=== PATIENT | male | born 1975 | race African-American/Black ===

== ENCOUNTER 2017-12-09 18:02 | Emergency (ER) | payer OTHER ==
[~2017-12-09] VITALS: Ht 170.2 cm; Wt 75.0 kg
[2017-12-09 20:26] VITALS: BP 138/85
[2017-12-09] MEDS ORDERED: DOXYCYCLINE HYCLATE 100 MG CAPSULE PO ONE (20:45)
[2017-12-09] MEDS ORDERED: AZITHROMYCIN 250 MG TABLET PO ONE (20:45)
[2017-12-09] MEDS ORDERED: CefTRIAXone SODIUM 1 GM/VIAL IM ONE (20:45)
== END 2017-12-09 21:20 | disposition home or self-care (01) ==
LOC: EMS 18:02
DX: N45.1 Epididymitis (principal); N34.2 Other urethritis; F20.9 Schizophrenia, unspecified; F31.9 Bipolar disorder, unspecified; F17.210 Nicotine dependence, cigarettes, uncomplicated
CPT/HCPCS: 76870; 96372; 99284; J0696

== ENCOUNTER 2019-11-09 22:16 | Emergency (ER) | payer OTHER ==
[~2019-11-09] VITALS: Ht 170.2 cm; Wt 65.9 kg
[2019-11-09] MEDS ORDERED: KETOROLAC TROMETHAMINE 60 MG/2 ML VIAL IM ONE (23:00)
[2019-11-09 23:19] LABS: BASOPHILS % (AUTO) 0.9 % (0.0-2.0); HEMATOCRIT 42.7 % (41-53); HEMOGLOBIN 13.7 g/dL (13.5-17.5); LYMPHOCYTES # (AUTO) 1.6 K/uL (1.0-4.8); MEAN CORPUSCULAR HEMOGLOBIN 27.7 pg (26.0-34.0); MEAN CORPUSCULAR HGB CONC 32.1 G/dL (31.0-37.0); MEAN CORPUSCULAR VOLUME 86 fL (80-100); MONOCYTES # (AUTO) 0.6 K/uL (0.1-1.0); NEUTROPHILS # (AUTO) 2.4 K/uL (1.8-7.7); NEUTROPHILS % (AUTO) 50.1 % (40.0-70.0); PLATELET COUNT (AUTO) 304 K/uL (150-450); RED BLOOD CELL COUNT(AUTO) 4.95 MIL/uL (4.50-5.90)
[2019-11-09 23:27] LABS: ANION GAP 10 mmol/L (8-16); CALCIUM, TOTAL 8.9 mg/dL (8.8-10.5); CARBON DIOXIDE 26 mmol/L (22-29); CHLORIDE 98 mmol/L (98-107); CREATININE 1.08 mg/dL (0.60-1.30); GLOMERULAR FILTR. RATE CALC > 60 mL/min (>60); GLUCOSE,RANDOM 89 mg/dL (70-110); POTASSIUM 3.6 mmol/L (3.5-5.1); SODIUM SERUM 134 mmol/L (136-145); UREA NITROGEN, BLOOD 11 mg/dL (7-18)
[2019-11-09 23:33] LABS: ALANINE AMINOTRANSFERASE 24 U/L (12-78); ALBUMIN 4.1 g/dL (3.4-5.0); ALKALINE PHOSPHATASE 109 U/L (46-116); ASPARTATE AMINOTRANSFERASE 21 U/L (15-37); BILIRUBIN,TOTAL 0.4 mg/dL (0.1-1.0); TOTAL PROTEIN, SERUM 7.5 g/dL (6.4-8.2)
[2019-11-10] VITALS: BP 141/89
== END 2019-11-10 00:30 | disposition home or self-care (01) ==
LOC: EMS 22:18
DX: N45.1 Epididymitis (principal); F15.10 Other stimulant abuse, uncomplicated; F17.210 Nicotine dependence, cigarettes, uncomplicated; F31.9 Bipolar disorder, unspecified; F20.9 Schizophrenia, unspecified
CPT/HCPCS: 36415; 80053; 85025; 99283; G0480

== ENCOUNTER 2019-11-10 13:56 | Emergency (ER) | payer OTHER ==
[~2019-11-10] VITALS: Ht 165.1 cm; Wt 77.3 kg
[2019-11-10 13:59] VITALS: BP 128/92
== END 2019-11-10 14:11 | disposition left against medical advice (07) ==
LOC: EMS 13:57
DX: M79.10 Myalgia, unspecified site (principal); Z53.21 Procedure and treatment not carried out due to patient leaving prior to being seen by health care provider

== ENCOUNTER 2021-05-05 18:47 | Inpatient (IN) | payer MEDICAID ==
[~2021-05-05] VITALS: Ht 170.2 cm; Wt 71.7 kg
[2021-05-05] MEDS ORDERED: HALOPERIDOL 5 MG TABLET PO PRN (23:45)
[2021-05-06] MEDS ORDERED: INFLUENZA VIRUS VACCINE QVS 2021-22 (6MO+)/PF 60 MCG/0.5 ML SYRINGE IM. ONE (00:15)
[2021-05-06] MEDS: LORazepam 2 MG TABLET PO PRN (00:27)
[2021-05-06] MEDS: ZOLPIDEM TARTRATE 10 MG TABLET PO PRN (00:27)
[2021-05-06 00:29] VITALS: BP 122/76
[2021-05-06 08:23] VITALS: BP 131/68
[2021-05-06] MEDS ORDERED: ONDANSETRON HCL 4 MG TABLET PO PRN (09:00)
[2021-05-06] MEDS ORDERED: PETROLATUM,WHITE 28 GM JELLY TP PRN (09:00)
[2021-05-06] MEDS ORDERED: BACITRACIN 28 GM OINTMENT TP PRN (09:00)
[2021-05-06] MEDS ORDERED: ALBUTEROL SULFATE HFA 90 MCG/PUFF 8 GM INHALER IH PRN (09:00)
[2021-05-06] MEDS ORDERED: BENZOCAINE/MENTHOL LOZENGE PO PRN (09:00)
[2021-05-06] MEDS ORDERED: DOCUSATE SODIUM 100 MG CAPSULE PO PRN (09:00)
[2021-05-06] MEDS ORDERED: MAGNESIUM HYDROXIDE SUSPENSION 30 ML UDCUP PO PRN (09:00)
[2021-05-06] MEDS ORDERED: CloNIDine HCL 0.1 MG TABLET PO PRN (09:00)
[2021-05-06] MEDS ORDERED: OMEPRAZOLE 20 MG CAPSULE PO PRN (09:00)
[2021-05-06] MEDS ORDERED: ACETAMINOPHEN 325 MG TABLET PO PRN (09:00)
[2021-05-06] MEDS ORDERED: LOPERAMIDE HCL 2 MG CAPSULE PO PRN (09:00)
[2021-05-06] MEDS ORDERED: IBUPROFEN 600 MG TABLET PO PRN (09:00)
[2021-05-06] MEDS ORDERED: MAG HYDROX/AL HYDROX/SIMETH ES 30 ML SUSPENSION UDCUP PO PRN (09:00)
[2021-05-06 16:16] VITALS: BP 113/65
[2021-05-06] MEDS ORDERED: LAMO25TA25 PO (18:57)
[2021-05-06] MEDS ORDERED: QUET100T PO (18:57)
[2021-05-06] MEDS ORDERED: QUET300T2 PO (18:57)
[2021-05-07 05:37] VITALS: BP 127/66
[2021-05-07 07:59] LABS: BASOPHILS % (AUTO) 0.5 % (0.0-2.0); EOSINOPHILS % (AUTO) 5.3 % (1.0-6.0); HEMATOCRIT 38.6 % (41-53); HEMOGLOBIN 12.7 g/dL (13.5-17.5); LYMPHOCYTES % (AUTO) 46.6 % (22.0-44.0); MEAN CORPUSCULAR VOLUME 88 fL (80-100); MONOCYTES # (AUTO) 0.5 K/uL (0.1-1.0); NEUTROPHILS # (AUTO) 1.5 K/uL (1.8-7.7); NEUTROPHILS % (AUTO) 35.6 % (40.0-70.0); PLATELET COUNT (AUTO) 331 K/uL (150-450); RED BLOOD CELL COUNT(AUTO) 4.39 MIL/uL (4.50-5.90); RED CELL DISTRIBUTION WIDTH 13.6 % (11.5-14.5)
[2021-05-07 08:14] LABS: HEMOGLOBIN A1C 5.6 % (3.8-5.6)
[2021-05-07 08:36] LABS: ALANINE AMINOTRANSFERASE 22 U/L (12-78); ALBUMIN 3.4 g/dL (3.4-5.0); ALKALINE PHOSPHATASE 90 U/L (46-116); ANION GAP 11 mmol/L (8-16); ASPARTATE AMINOTRANSFERASE 19 U/L (15-37); BILIRUBIN,TOTAL 0.3 mg/dL (0.1-1.0); CALCIUM, TOTAL 8.2 mg/dL (8.8-10.5); CARBON DIOXIDE 27 mmol/L (22-29); CHLORIDE 105 mmol/L (98-107); CHOL/HDL RATIO 3.3 (4.2-7.3); CHOLESTEROL 166 mg/dL (131-200); FREE T4 (FREE THYROXINE) 1.27 ng/dL (0.76-1.46); GLOMERULAR FILTR. RATE CALC > 60 mL/min (>60); GLUCOSE,RANDOM 102 mg/dL (70-110); HDL CHOLESTEROL 50 mg/dL (40-60); LDL CHOL (CALC.) 108 mg/dL (0-130); POTASSIUM 3.7 mmol/L (3.5-5.1); SODIUM SERUM 143 mmol/L (136-145); TOTAL PROTEIN, SERUM 6.3 g/dL (6.4-8.2); TRIGLYCERIDES 40 mg/dL (15-150); UREA NITROGEN, BLOOD 10 mg/dL (7-18)
[2021-05-07 08:52] VITALS: BP 109/66
[2021-05-07 16:06] VITALS: BP 111/75
[2021-05-07] MEDS: LamoTRIgine 100 MG TABLET PO SCH (16:26)
[2021-05-07] MEDS: LORazepam 2 MG TABLET PO PRN (16:26)
[2021-05-07] MEDS: QUEtiapine FUMARATE 100 MG TABLET PO SCH (16:26)
[2021-05-07] MEDS ORDERED: LamoTRIgine 100 MG TABLET PO SCH (17:00)
[2021-05-07] MEDS: QUEtiapine FUMARATE 300 MG TABLET PO SCH (20:26)
[2021-05-08 06:06] VITALS: BP 101/61
[2021-05-08 08:25] VITALS: BP 108/68
[2021-05-08] MEDS: LamoTRIgine 100 MG TABLET PO SCH ×2 (08:45→17:01)
[2021-05-08] MEDS: QUEtiapine FUMARATE 100 MG TABLET PO SCH (08:45)
[2021-05-08] MEDS: LORazepam 2 MG TABLET PO PRN ×2 (08:55→20:03)
[2021-05-08] MEDS: QUEtiapine FUMARATE 300 MG TABLET PO SCH (20:03)
[2021-05-09 06:50] VITALS: BP 123/78
[2021-05-09 08:08] VITALS: BP 122/90
[2021-05-09] MEDS: LamoTRIgine 100 MG TABLET PO SCH ×2 (08:35→17:05)
[2021-05-09] MEDS: QUEtiapine FUMARATE 100 MG TABLET PO SCH (08:35)
[2021-05-09] MEDS: LORazepam 2 MG TABLET PO PRN ×2 (11:52→20:02)
[2021-05-09 16:17] VITALS: BP 133/78
[2021-05-09] MEDS: QUEtiapine FUMARATE 300 MG TABLET PO SCH (20:02)
[2021-05-10 04:47] VITALS: BP 132/90
[2021-05-10 08:30] VITALS: BP 114/72
[2021-05-10] MEDS: QUEtiapine FUMARATE 100 MG TABLET PO SCH (08:46)
[2021-05-10] MEDS: LamoTRIgine 100 MG TABLET PO SCH ×2 (08:46→16:46)
[2021-05-10 16:00] VITALS: BP 108/70
[2021-05-10] MEDS: LORazepam 2 MG TABLET PO PRN (16:46)
[2021-05-10] MEDS: QUEtiapine FUMARATE 300 MG TABLET PO SCH (20:15)
[2021-05-10] MEDS: ZOLPIDEM TARTRATE 10 MG TABLET PO PRN (20:15)
[2021-05-11 06:24] VITALS: BP 118/72
[2021-05-11 07:36] LABS: COVID AG,FIA SOURCE NASAL SWAB
[2021-05-11 08:15] VITALS: BP 135/72
[2021-05-11] MEDS: LORazepam 2 MG TABLET PO PRN ×2 (08:32→16:31)
[2021-05-11] MEDS: LamoTRIgine 100 MG TABLET PO SCH ×2 (08:32→16:30)
[2021-05-11] MEDS: QUEtiapine FUMARATE 100 MG TABLET PO SCH (08:32)
[2021-05-11 16:10] VITALS: BP 133/89
[2021-05-11] MEDS: QUEtiapine FUMARATE 300 MG TABLET PO SCH (20:19)
[2021-05-11] MEDS: ZOLPIDEM TARTRATE 10 MG TABLET PO PRN (20:20)
[2021-05-12 05:11] VITALS: BP 128/78
[2021-05-12 08:36] VITALS: BP_SYST 109; BP_DIAS 73; BP_DIAS 82
[2021-05-12] MEDS: LamoTRIgine 100 MG TABLET PO SCH (08:41)
[2021-05-12] MEDS: QUEtiapine FUMARATE 100 MG TABLET PO SCH (08:41)
[2021-05-12 16:24] VITALS: BP 120/76
[2021-05-13 06:06] LABS: HIV 1-2 SCREEN 4TH GEN W/RFLX Non Reactive (Non Reactive)
== END 2021-05-12 20:41 | disposition home or self-care (01) | DRG 750 ==
LOC: B3A 23:47
PROVIDERS: ADMIT Psychiatry & Neurology Psychiatry; ATTEND Psychiatry & Neurology Psychiatry
DX: F25.9 Schizoaffective disorder, unspecified (principal); F17.210 Nicotine dependence, cigarettes, uncomplicated; F41.9 Anxiety disorder, unspecified; G47.00 Insomnia, unspecified; Z79.899 Other long term (current) drug therapy; K59.00 Constipation, unspecified; Z20.822 Contact with and (suspected) exposure to COVID-19
CPT/HCPCS: 80053; 80061; 83036; 84439; 84443; 85025; 87389

== ENCOUNTER 2021-09-19 06:23 | Emergency (ER) | payer MEDICAID ==
[~2021-09-19] VITALS: Ht 167.6 cm; Wt 75.0 kg
[~2021-09-19 06:23] MED LIST: LAMO25TA25 PO; QUET100T PO; QUET300T2 PO
[2021-09-19 07:22] LABS: BASOPHILS % (AUTO) 0.5 % (0.0-2.0); EOSINOPHILS % (AUTO) 6.9 % (1.0-6.0); HEMATOCRIT 39.8 % (41-53); HEMOGLOBIN 13.2 g/dL (13.5-17.5); LYMPHOCYTES % (AUTO) 50.9 % (22.0-44.0); MEAN CORPUSCULAR HEMOGLOBIN 28.7 pg (26.0-34.0); MEAN CORPUSCULAR HGB CONC 33.2 G/dL (31.0-37.0); MEAN CORPUSCULAR VOLUME 86 fL (80-100); MONOCYTES # (AUTO) 0.4 K/uL (0.1-1.0); MONOCYTES % (AUTO) 9.2 % (2.0-9.0); NEUTROPHILS # (AUTO) 1.3 K/uL (1.8-7.7); NEUTROPHILS % (AUTO) 32.5 % (40.0-70.0); PLATELET COUNT (AUTO) 279 K/uL (150-450); RED BLOOD CELL COUNT(AUTO) 4.61 MIL/uL (4.50-5.90); RED CELL DISTRIBUTION WIDTH 13.3 % (11.5-14.5)
[2021-09-19 07:45] LABS: ANION GAP 8 mmol/L (8-16); CALCIUM, TOTAL 8.2 mg/dL (8.8-10.5); CARBON DIOXIDE 30 mmol/L (22-29); CHLORIDE 104 mmol/L (98-107); CREATININE 0.97 mg/dL (0.60-1.30); GLOMERULAR FILTR. RATE CALC > 60 mL/min (>60); GLUCOSE,RANDOM 92 mg/dL (70-110); POTASSIUM 3.4 mmol/L (3.5-5.1); SODIUM SERUM 142 mmol/L (136-145); UREA NITROGEN, BLOOD 7 mg/dL (7-18)
[2021-09-19 07:49] LABS: ALANINE AMINOTRANSFERASE 24 U/L (12-78); ALBUMIN 3.5 g/dL (3.4-5.0); ALKALINE PHOSPHATASE 101 U/L (46-116); ASPARTATE AMINOTRANSFERASE 26 U/L (15-37); BILIRUBIN,TOTAL 0.2 mg/dL (0.1-1.0); TOTAL PROTEIN, SERUM 6.8 g/dL (6.4-8.2)
[2021-09-19 11:08] VITALS: BP 115/70
== END 2021-09-19 11:30 | disposition home or self-care (01) ==
LOC: EMS 06:26
DX: R07.89 Other chest pain (principal); F31.9 Bipolar disorder, unspecified; F20.9 Schizophrenia, unspecified; F15.90 Other stimulant use, unspecified, uncomplicated; F17.210 Nicotine dependence, cigarettes, uncomplicated; Z79.899 Other long term (current) drug therapy
CPT/HCPCS: 71045; 80053; 84484; 85025; 93005; 99285; 36415-L1; 36415-TC

== ENCOUNTER 2021-10-05 21:27 | Emergency (ER) | payer MEDICAID ==
[~2021-10-05] VITALS: Ht 170.2 cm; Wt 63.6 kg
[2021-10-05 22:12] VITALS: BP 113/72
== END 2021-10-06 00:15 | disposition left against medical advice (07) ==
LOC: EMS 21:27
DX: R45.1 Restlessness and agitation (principal); Z53.21 Procedure and treatment not carried out due to patient leaving prior to being seen by health care provider

== ENCOUNTER 2021-11-04 14:38 | Emergency (ER) | payer OTHER, MEDICAID ==
[~2021-11-04] VITALS: Ht 167.6 cm; Wt 63.6 kg
[2021-11-04 15:17] LABS: BASOPHILS % (AUTO) 0.4 % (0.0-2.0); EOSINOPHILS % (AUTO) 5.3 % (1.0-6.0); HEMATOCRIT 40.7 % (41-53); HEMOGLOBIN 13.6 g/dL (13.5-17.5); LYMPHOCYTES # (AUTO) 1.8 K/uL (1.0-4.8); LYMPHOCYTES % (AUTO) 40.4 % (22.0-44.0); MEAN CORPUSCULAR HEMOGLOBIN 28.4 pg (26.0-34.0); MEAN CORPUSCULAR HGB CONC 33.4 G/dL (31.0-37.0); MEAN CORPUSCULAR VOLUME 85 fL (80-100); MONOCYTES # (AUTO) 0.7 K/uL (0.1-1.0); MONOCYTES % (AUTO) 15.4 % (2.0-9.0); NEUTROPHILS # (AUTO) 1.7 K/uL (1.8-7.7); NEUTROPHILS % (AUTO) 38.5 % (40.0-70.0); PLATELET COUNT (AUTO) 308 K/uL (150-450); RED BLOOD CELL COUNT(AUTO) 4.78 MIL/uL (4.50-5.90); RED CELL DISTRIBUTION WIDTH 13.4 % (11.5-14.5)
[2021-11-04 15:18] LABS: COVID AG,FIA SOURCE NASOPHARYNGEAL
[2021-11-04 15:38] LABS: ANION GAP 8 mmol/L (8-16); CALCIUM, TOTAL 8.6 mg/dL (8.8-10.5); CARBON DIOXIDE 31 mmol/L (22-29); CHLORIDE 102 mmol/L (98-107); CREATININE 1.29 mg/dL (0.60-1.30); GLOMERULAR FILTR. RATE CALC > 60 mL/min (>60); GLUCOSE,RANDOM 97 mg/dL (70-110); SODIUM SERUM 141 mmol/L (136-145); UREA NITROGEN, BLOOD 20 mg/dL (7-18)
[2021-11-04 15:41] LABS: B-TYPE NATRIURETIC PEPTIDE < 5 pg/mL (0-100)
[2021-11-04 16:03] LABS: ALANINE AMINOTRANSFERASE 21 U/L (12-78); ALBUMIN 3.8 g/dL (3.4-5.0); ALKALINE PHOSPHATASE 106 U/L (46-116); ASPARTATE AMINOTRANSFERASE 16 U/L (15-37); BILIRUBIN,TOTAL 0.2 mg/dL (0.1-1.0); CREATINE KINASE, TOTAL ONLY 162 U/L (39-308); PHOSPHORUS 4.6 mg/dL (2.5-4.9); TOTAL PROTEIN, SERUM 7.2 g/dL (6.4-8.2)
[2021-11-04 16:29] VITALS: BP 111/73
[2021-11-05 10:07] LABS: HIV 1-2 SCREEN 4TH GEN W/RFLX Non Reactive (Non Reactive)
== END 2021-11-04 17:01 | disposition home or self-care (01) ==
LOC: EMS 14:38
DX: R00.2 Palpitations (principal); F31.9 Bipolar disorder, unspecified; F20.9 Schizophrenia, unspecified; F17.210 Nicotine dependence, cigarettes, uncomplicated; F15.90 Other stimulant use, unspecified, uncomplicated; Z86.79 Personal history of other diseases of the circulatory system; Z87.39 Personal history of other diseases of the musculoskeletal system and connective tissue; Z98.890 Other specified postprocedural states; Z20.822 Contact with and (suspected) exposure to COVID-19
CPT/HCPCS: 36415; 71045; 80053; 82550; 83735; 83880; 84100; 84484; 85025; 87389; 87426; 93005; 99285; G0480

== ENCOUNTER 2022-03-18 13:41 | Inpatient (IN) | payer MEDICAID, OTHER ==
[~2022-03-18] VITALS: Ht 172.7 cm; Wt 73.9 kg
[2022-03-18] MEDS ORDERED: HALOPERIDOL LACTATE 5 MG/ML VIAL IM ONE (15:45)
[2022-03-18] MEDS ORDERED: DiphenhydrAMINE HCL 50 MG/ML VIAL IM ONE (15:45)
[2022-03-18] MEDS ORDERED: LORazepam 2 MG/ML VIAL IM ONE (15:45)
[2022-03-18] MEDS ORDERED: HALOPERIDOL 5 MG TABLET PO PRN (16:30)
[2022-03-18] MEDS ORDERED: ZOLPIDEM TARTRATE 10 MG TABLET PO PRN (16:30)
[2022-03-18] MEDS ORDERED: LORazepam 2 MG TABLET PO PRN (16:30)
[2022-03-18 17:46] LABS: COVID AG,FIA SOURCE NASAL SWAB
[2022-03-19 01:25] VITALS: BP 109/70
[2022-03-19] MEDS ORDERED: ACETAMINOPHEN 325 MG TABLET PO PRN (08:00)
[2022-03-19] MEDS ORDERED: IBUPROFEN 400 MG TABLET PO PRN (08:00)
[2022-03-19] MEDS ORDERED: MAG HYDROX/AL HYDROX/SIMETH ES 30 ML SUSPENSION UDCUP PO PRN (08:00)
[2022-03-19] MEDS ORDERED: PETROLATUM,WHITE 28 GM JELLY TP PRN (08:00)
[2022-03-19] MEDS ORDERED: LOPERAMIDE HCL 2 MG CAPSULE PO PRN (08:00)
[2022-03-19] MEDS ORDERED: CloNIDine HCL 0.1 MG TABLET PO PRN (08:00)
[2022-03-19] MEDS ORDERED: ALBUTEROL SULFATE HFA 90 MCG/PUFF 8 GM INHALER IH PRN (08:00)
[2022-03-19] MEDS ORDERED: NICOTINE 14 MG/24 HOUR PATCH TD PRN (08:00)
[2022-03-19] MEDS ORDERED: ONDANSETRON HCL 4 MG TABLET PO PRN (08:00)
[2022-03-19] MEDS ORDERED: MAGNESIUM HYDROXIDE SUSPENSION 30 ML UDCUP PO PRN (08:00)
[2022-03-19] MEDS ORDERED: DOCUSATE SODIUM 100 MG CAPSULE PO PRN (08:00)
[2022-03-19] MEDS ORDERED: GuaiFENesin/D-METHORPHAN [SUGAR-FREE] 200-20MG/10 ML SYRUP UDCUP PO PRN (08:00)
[2022-03-19 11:53] VITALS: BP 97/56
[2022-03-19 20:15] VITALS: BP 102/62
[2022-03-20 06:48] LABS: BASOPHILS % (AUTO) 0.3 % (0.0-2.0); EOSINOPHILS % (AUTO) 6.9 % (1.0-6.0); HEMATOCRIT 38.3 % (41-53); HEMOGLOBIN 12.8 g/dL (13.5-17.5); LYMPHOCYTES # (AUTO) 2.2 K/uL (1.0-4.8); LYMPHOCYTES % (AUTO) 57.8 % (22.0-44.0); MEAN CORPUSCULAR HEMOGLOBIN 28.3 pg (26.0-34.0); MEAN CORPUSCULAR HGB CONC 33.5 G/dL (31.0-37.0); MEAN CORPUSCULAR VOLUME 85 fL (80-100); MONOCYTES # (AUTO) 0.3 K/uL (0.1-1.0); MONOCYTES % (AUTO) 7.8 % (2.0-9.0); NEUTROPHILS # (AUTO) 1.1 K/uL (1.8-7.7); NEUTROPHILS % (AUTO) 27.2 % (40.0-70.0); PLATELET COUNT (AUTO) 273 K/uL (150-450); RED BLOOD CELL COUNT(AUTO) 4.52 MIL/uL (4.50-5.90); RED CELL DISTRIBUTION WIDTH 13.7 % (11.5-14.5)
[2022-03-20 07:01] LABS: HEMOGLOBIN A1C 5.6 % (3.8-5.6)
[2022-03-20 07:12] LABS: ALANINE AMINOTRANSFERASE 27 U/L (12-78); ALBUMIN 3.3 g/dL (3.4-5.0); ALKALINE PHOSPHATASE 95 U/L (46-116); ANION GAP 4 mmol/L (8-16); ASPARTATE AMINOTRANSFERASE 24 U/L (15-37); BILIRUBIN,TOTAL 0.2 mg/dL (0.1-1.0); CALCIUM, TOTAL 8.4 mg/dL (8.8-10.5); CARBON DIOXIDE 30 mmol/L (22-29); CHLORIDE 102 mmol/L (98-107); CHOL/HDL RATIO 3.1 (4.2-7.3); CHOLESTEROL 126 mg/dL (131-200); FREE T4 (FREE THYROXINE) 1.11 ng/dL (0.76-1.46); GLUCOSE,RANDOM 88 mg/dL (70-110); HDL CHOLESTEROL 41 mg/dL (40-60); LDL CHOL (CALC.) 75 mg/dL (0-130); SODIUM SERUM 136 mmol/L (136-145); TRIGLYCERIDES 52 mg/dL (15-150); UREA NITROGEN, BLOOD 11 mg/dL (7-18)
[2022-03-20 07:42] LABS: GLOMERULAR FILTR. RATE CALC > 60 mL/min (>60); POTASSIUM 2.9 mmol/L (3.5-5.1)
[2022-03-20] MEDS ORDERED: POTASSIUM CHLORIDE 20 MEQ ER TABLET PO ONE (08:15)
[2022-03-20 09:51] VITALS: BP 122/80
[2022-03-20 20:18] VITALS: BP 103/66
[2022-03-21 09:18] VITALS: BP 116/71
[2022-03-21] MEDS ORDERED: POTASSIUM CHLORIDE 20 MEQ ER TABLET PO ONE (10:45)
[2022-03-21] MEDS: QUEtiapine FUMARATE 100 MG TABLET PO SCH ×2 (14:00→14:15)
== END 2022-03-21 15:10 | disposition left against medical advice (07) | DRG 750 ==
LOC: EMS 13:43 → B3A 21:20
PROVIDERS: ADMIT Psychiatry & Neurology Child & Adolescent Psychiatry; ATTEND Psychiatry & Neurology Child & Adolescent Psychiatry
DX: F20.9 Schizophrenia, unspecified (principal); D64.9 Anemia, unspecified; D72.819 Decreased white blood cell count, unspecified; E87.6 Hypokalemia; F15.10 Other stimulant abuse, uncomplicated; F17.200 Nicotine dependence, unspecified, uncomplicated; F31.9 Bipolar disorder, unspecified; G47.00 Insomnia, unspecified; Z53.20 Procedure and treatment not carried out because of patient's decision for unspecified reasons; Z20.822 Contact with and (suspected) exposure to COVID-19; F41.9 Anxiety disorder, unspecified; Z79.899 Other long term (current) drug therapy
CPT/HCPCS: 80053; 80061; 83036; 84132; 84439; 84443; 85025; 99291; J1200; J1630; J2060